=== PATIENT | female | born 2000 ===

== ENCOUNTER 2024-04-28 12:51 | Outpatient (CLI) | payer OTHER | END 2024-04-28 12:55 | disposition home or self-care (01) | LOC: PRENATAL 12:51 | PROVIDERS: ATTEND Obstetrics & Gynecology Maternal & Fetal Medicine | DX: O44.00 Complete placenta previa NOS or without hemorrhage, unspecified trimester (principal); O34.219 Maternal care for unspecified type scar from previous cesarean delivery; Z3A.20 20 weeks gestation of pregnancy ==

== ENCOUNTER 2024-07-15 11:06 | Outpatient (CLI) | payer OTHER | END 2024-07-15 11:07 | disposition home or self-care (01) | LOC: PRENATAL 11:06 | PROVIDERS: ATTEND Obstetrics & Gynecology Maternal & Fetal Medicine | DX: O26.849 Uterine size-date discrepancy, unspecified trimester (principal); O36.8199 Decreased fetal movements, unspecified trimester, other fetus; O34.219 Maternal care for unspecified type scar from previous cesarean delivery; Z3A.33 33 weeks gestation of pregnancy ==